=== PATIENT | male | born 1985 | race Caucasian/White ===

== ENCOUNTER 2019-06-05 00:57 | Emergency (ER) | payer BC ==
[~2019-06-05] VITALS: Ht 170.2 cm; Wt 62.6 kg
[2019-06-05] MEDS ORDERED: GABA600T12 PO (01:09)
[2019-06-05] MEDS ORDERED: ALPR0.5T PO (01:09)
[2019-06-05] MEDS ORDERED: IV NORMAL SALINE 1000 ML BAG IV ONE ×4 (01:30→03:45)
[2019-06-05] MEDS ORDERED: ONDANSETRON 4 MG/2 ML VIAL IV ONE ×2 (01:30→02:15)
[2019-06-05] MEDS ORDERED: PANTOPRAZOLE SODIUM 40 MG VIAL ONE (01:30)
[2019-06-05] MEDS ORDERED: PANTOPRAZOLE SODIUM 40 MG VIAL IV ONE (01:30)
[2019-06-05] MEDS ORDERED: ONDANSETRON 4 MG/2 ML VIAL ONE ×2 (01:30→02:17)
--- NOTE | 2019-06-05 01:41 | NUR ---
IV STOP TIME: 1ST BAG OF IV NSS 1000ML INFUSED Addendum: 06/21/19 at 0712 by ERICK Amendment zac in EDM - 06/21/19 at 0713 by ERICK NSS 1000ML 1ST BAG START TIME: 014, END TIME: 214
--- NOTE | 2019-06-05 02:16 | NUR ---
IV STOP TIME: 2ND BAG OF IV NSS 1000ML INFUSED
--- NOTE | 2019-06-05 02:57 | NUR ---
IV STOP TIME: 3RD BAG OF IV NSS 1000ML INFUSED
[2019-06-05 03:07] LABS: BASOPHILS % (AUTO) 0.2 % (0.0-2.0); EOSINOPHILS % (AUTO) 0.3 % (0.0-7.0); HEMATOCRIT 45.2 % (36.7-47.1); HEMOGLOBIN 15.1 g/dL (12.5-16.3); LYMPHOCYTES # (AUTO) 0.5 K/uL (20.0-40.0); LYMPHOCYTES % (AUTO) 3.5 % (20.5-51.5); MEAN CORPUSCULAR HEMOGLOBIN 30.5 uug (23.8-33.4); MEAN CORPUSCULAR HGB CONC 34 g/dL (32.5-36.3); MEAN CORPUSCULAR VOLUME 91.1 fL (73.0-96.2); MONOCYTES # (AUTO) 0.6 K/uL (2.0-10.0); NEUTROPHILS # (AUTO) 12.9 K/uL (1.8-8.9); PLATELET COUNT (AUTO) 271 K/uL (152-348); RED BLOOD CELL COUNT(AUTO) 4.96 MIL/uL (4.06-5.63)
[2019-06-05 03:21] LABS: BILIRUBIN,DIRECT 0.4 mg/dL (0.0-0.2); BILIRUBIN,TOTAL 2.8 mg/dL (0.2-1.0); CREATININE 1.1 mg/dL (0.6-1.3); POTASSIUM 3.3 mmol/L (3.5-5.1); TOTAL PROTEIN, SERUM 8.7 g/dL (6.4-8.2)
--- NOTE | 2019-06-05 03:50 | NUR ---
PT STARTED C/O CHILLS PT TEMP AT 97.4f kept warm dry and comfortable PT STILL C/O NAUSEA
[2019-06-05] MEDS ORDERED: diphenhydrAMINE 50 MG/1 ML VIAL ONE (03:57)
[2019-06-05] MEDS ORDERED: LOPERAMIDE HCL 2 MG CAPSULE ONE (03:58)
[2019-06-05] MEDS ORDERED: METOCLOPRAMIDE HCL 10 MG/2 ML VIAL ONE ×2 (03:58→04:41)
[2019-06-05] MEDS ORDERED: METOCLOPRAMIDE HCL 10 MG/2 ML VIAL IV ONE ×2 (04:00→04:45)
[2019-06-05] MEDS ORDERED: diphenhydrAMINE 50 MG/1 ML VIAL IV ONE (04:00)
[2019-06-05] MEDS ORDERED: LOPERAMIDE HCL 2 MG CAPSULE PO ONE (04:00)
--- NOTE | 2019-06-05 04:00 | NUR ---
PT ABLE TO TOLERATE IV MEDS ORDERED
--- NOTE | 2019-06-05 05:45 | NUR ---
Patient discharged to home in stable conditon. Written and verbal after care instructions given. Patient verbalizes understanding of instructions. AMBULATORY W/ STABLE GAIT ALL BELONGINGS W/ PT IV SALINE LOCK DC, DRESSED
[2019-06-05 06:02] VITALS: BP 110/65
--- NOTE | 2019-06-21 07:14 | NUR ---
LATE ENTRY CORRECTION FOR 06/05/19: NS BAG #1 START TIME: 0141, END TIME: 0215 NS BAG# 2 START TIME: 0216, END TIME: 0300 NS BAG# 3 START TIME: 0257, END TIME : 0345 INFUSED PER IV
== END 2019-06-05 05:40 | disposition home or self-care (01) ==
LOC: ER 01:04
DX: R11.10 Vomiting, unspecified (principal); R19.7 Diarrhea, unspecified; R00.2 Palpitations; Z88.8 Allergy status to other drugs, medicaments and biological substances; Z79.899 Other long term (current) drug therapy
CPT/HCPCS: 36415; 80048; 80076; 85025; 96374; 96375; 96376; 99283; C9113; J1200; J2405 ×2; J2765 ×2; A4663; J7030

== ENCOUNTER 2019-06-05 13:32 | Emergency (ER) | payer BC ==
[~2019-06-05] VITALS: Ht 170.2 cm; Wt 61.7 kg
[~2019-06-05 13:32] MED LIST: ALPR0.5T PO; GABA600T12 PO
--- NOTE | 2019-06-05 14:10 | NUR ---
PT IS IN ROOM #1B. DR GRIFFIN EVALUATED THE PT.
[2019-06-05 14:19] LABS: BASOPHILS % (AUTO) 0.3 % (0.0-2.0); EOSINOPHILS % (AUTO) 0.2 % (0.0-7.0); HEMATOCRIT 38.1 % (36.7-47.1); HEMOGLOBIN 12.7 g/dL (12.5-16.3); LYMPHOCYTES # (AUTO) 0.5 K/uL (20.0-40.0); LYMPHOCYTES % (AUTO) 6.8 % (20.5-51.5); MEAN CORPUSCULAR HEMOGLOBIN 30.8 uug (23.8-33.4); MEAN CORPUSCULAR HGB CONC 33 g/dL (32.5-36.3); MEAN CORPUSCULAR VOLUME 92.6 fL (73.0-96.2); MONOCYTES # (AUTO) 0.4 K/uL (2.0-10.0); MONOCYTES % (AUTO) 5.5 % (0.0-11.0); NEUTROPHILS # (AUTO) 5.9 K/uL (1.8-8.9); NEUTROPHILS % (AUTO) 87.2 % (38.5-71.5); PLATELET COUNT (AUTO) 170 K/uL (152-348); RED BLOOD CELL COUNT(AUTO) 4.11 MIL/uL (4.06-5.63); WHITE BLOOD COUNT (AUTO) 6.8 K/uL (3.6-10.2)
[2019-06-05 14:21] LABS: *BILIRUBIN,URIN NEGATIVE (NEGATIVE); *BLOOD, URINE 1+ (NEGATIVE); *CLARITY,URINE CLEAR (CLEAR); *COLOR,URINE YELLOW (YELLOW); *KETONES,URINE NEGATIVE (NEGATIVE); *UROBILINOGEN,URINE 0.2 E.U./dl (NORMAL); LEUKOCYTE ESTERASE ,URINE NEGATIVE (NEGATIVE); NITRITE, URINE NEGATIVE (NEGATIVE); PH,URINE 6.5 (5.0-8.0); UGLUCOSE NEGATIVE (NEGATIVE)
[2019-06-05 14:21] LABS: CREATININE 1.1 mg/dL (0.6-1.3); POTASSIUM 3.6 mmol/L (3.5-5.1)
[2019-06-05 14:27] LABS: BILIRUBIN,DIRECT 0.3 mg/dL (0.0-0.2); BILIRUBIN,TOTAL 2.4 mg/dL (0.2-1.0); TOTAL PROTEIN, SERUM 6.7 g/dL (6.4-8.2)
[2019-06-05 14:30] LABS: WBC,URINE 0-3 /HPF (0-3)
--- NOTE | 2019-06-05 14:56 | NUR ---
PT WAS D/C'd TO HOME. D/C INSTRUCTIONS GIVEN TO THE PT BY DR GRIFFIN.
[2019-06-05 14:57] VITALS: BP 130/75
== END 2019-06-05 14:58 | disposition home or self-care (01) ==
LOC: ER 13:38
DX: R11.10 Vomiting, unspecified (principal); R10.9 Unspecified abdominal pain; R19.7 Diarrhea, unspecified; M54.5 Low back pain; Z88.8 Allergy status to other drugs, medicaments and biological substances; Z79.899 Other long term (current) drug therapy
CPT/HCPCS: 36415; 83690; 85025; A4663